=== PATIENT | male | born 1965 | race Caucasian/White ===

== ENCOUNTER 2023-03-18 17:19 | Emergency (ER) | payer OTHER, SELFPAY ==
[2023-03-18] VITALS (7 sets, daily range): BP systolic 137–180; BP diastolic 93–99; PULSE 60–91; RESP 16; TEMP 36.9; O2SAT 94–96; BMI 31.1
--- NOTE | 2023-03-18 17:34 | CTR_ITS ---
PROCEDURE INFORMATION: Exam: CT Head Without Contrast Exam date and time: 03/18/2023 6:12 PM Age: 57 years old Clinical indication: Injury or trauma; Fall; Blunt trauma (contusions or hematomas); Additional info: Fall headache TECHNIQUE: Imaging protocol: Computed tomography of the head without contrast. Radiation optimization: All CT scans at this facility use at least one of these dose optimization techniques: automated exposure control; mA and/or kV adjustment per patient size (includes targeted exams where dose is matched to clinical indication); or iterative reconstruction. REPORTING DATA: Count of CT and Cardiac NM exams in prior 12 months: This patient has received 0 known CTs and 0 known cardiac nuclear medicine studies in the 12 months prior to the current study. COMPARISON: No relevant prior studies available. RADIATION DOSE METRICS: Total DLP (mGy-cm): 1252 FINDINGS: Brain: Normal. No hemorrhage. Unremarkable white matter. No mass effect. Cerebral ventricles: No ventriculomegaly. Paranasal sinuses: Visualized sinuses are unremarkable. No fluid levels. Mastoid air cells: Visualized mastoid air cells are well aerated. Bones/joints: Unremarkable. No acute fracture. Soft tissues: Unremarkable. CT/CT head wo con* [id number] IMPRESSION: No acute intracranial abnormality.
--- NOTE | 2023-03-18 17:34 | CTR_ITS ---
PROCEDURE INFORMATION: Exam: CT Cervical Spine Without Contrast Exam date and time: 03/18/2023 6:12 PM Age: 57 years old Clinical indication: Injury or trauma; Fall; Blunt trauma; Additional info: Fall neck pain TECHNIQUE: Imaging protocol: Computed tomography of the cervical spine without contrast. Radiation optimization: All CT scans at this facility use at least one of these dose optimization techniques: automated exposure control; mA and/or kV adjustment per patient size (includes targeted exams where dose is matched to clinical indication); or iterative reconstruction. REPORTING DATA: Count of CT and Cardiac NM exams in prior 12 months: This patient has received 0 known CTs and 0 known cardiac nuclear medicine studies in the 12 months prior to the current study. COMPARISON: No relevant prior studies available. RADIATION DOSE METRICS: Total DLP (mGy-cm): 257 FINDINGS: Bones/joints: The vertebral body alignment and stature is intact. Mild degenerative endplate changes at C4-C5 through C6-C7. No significant central canal or foraminal stenosis. The facets are intact with mild degenerative changes. Lungs: Lung apices are normal. Soft tissues: Unremarkable. CT/CT cervical spin wo con* [id number] IMPRESSION: No acute findings.
[2023-03-18 17:41] LABS: Basophils # 0.1 10^3/uL (0.0-0.1); Basophils % 0.5 %; Eosinophils # 0.2 10^3/uL (0.0-0.8); Eosinophils % 2.2 %; Hematocrit 47.2 % (42.0-52.0); Hemoglobin 16.5 g/dL (11.7-16.6); Lymphocytes # 1.7 10^3/uL (0.8-4.8); Lymphocytes % 18.1 %; Mean Corpuscular Hemoglobin 31.4 pg (28.0-34.0); Mean Corpuscular Volume 89.7 fl (80-94); Mean Platelet Volume 9.2 fL (7.4-10.4); Monocytes # 0.9 10^3/uL (0.2-0.9); Monocytes % 9.3 %; Neutrophils # 6.24 10^3/uL (1.8-7.7); Neutrophils % 68.6 %; Nucleated Red Blood Cells % 0 %; Platelet Count 201 10^3/cmm (130-400); Red Blood Count 5.26 10^6/uL (4.1-5.3); Red Cell Distribution Width 13.8 % (12.1-15.1); White Blood Count 9.1 10^3/uL (4.0-10.0)
--- NOTE | 2023-03-18 17:43 | ECG_ITS ---
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 Measurements Intervals [place] Rate: 63 P: 44 AR: 180 QRS: -12 QRSD: 98 T: 38 QT: 394 QTc: 405 Interpretive Statements SINUS RHYTHM LOW QRS VOLTAGE IN PRECORDIAL LEADS [QRS DEFLECTION < 1.0 mV IN CHEST LEADS] MODERATE VOLTAGE CRITERIA FOR LVH, CONSIDER NORMAL VARIANT [MEETS CRITERIA IN ONE OF: R(aVL), S(V1), R(V5), R(V5/V6)+S(V1)] No previous ECG available for comparison Electronically Signed On 03-18-2023 19:24:36 CDT by Sada Moore M.D. [id number]
[2023-03-18 17:59] LABS: Alanine Aminotransferase 20 U/L (0-41); Alkaline Phosphatase 79 U/L (40-130); Anion Gap 13.4 (5-19); Aspartate Amino Transferase 14 U/L (0-40); Blood Urea Nitrogen 15 mg/dL (6-20); Calcium 8.6 mg/dL (8.5-10.5); Carbon Dioxide 25 mmol/L (22-29); Chloride 104 mmol/L (98-107); Creatinine Clr Calc Pharmacy 104.2317; Glomerular Filtration Rate 77.6 mL/min (90-130); Glucose 139 mg/dL (65-115); Magnesium 2.1 mg/dL (1.7-2.3); Osmolality Calculated 291 mOsm/kg (285-295); Potassium 3.4 mmol/L (3.5-5.1); Sodium 139 mmol/L (136-145); Total Bilirubin 0.6 mg/dL (0.15-1.2)
--- NOTE | 2023-03-18 18:06 | W.ED.SYNCOPE ---
HPI - Syncope General: Chief Complaint: Syncope Stated Complaint: syncope Time Seen by Provider: 03/18/23 17:30 History of Present Illness: Patient has syncopal episode today at work. Patient's son was positive he hit his head left side of his head. Patient denies any other symptoms at this time. Patient's blood pressure is high at 180/95. Patient is unsure how long he was out. Patient did not have any deciding factors prior to the syncopal episode. It was witnessed. Patient was placed in a c-collar by EMS secondary to neck pain. Review of Systems General: Reports: 10 or more systems reviewed and unremarkable except in HPI and below Physical Exam Const: COMMON NORMALS: no acute distress, average body habitus, patient oriented x3, no limitations, healthy appearing, alert and well nourished HENMT: COMMON NORMALS: normocephalic, atraumatic, hearing grossly normal bilaterally, external ears normal, Normal external nose present and moist oral mucous membranes HEAD & SCALP: normocephalic and atraumatic NOSE: Normal external nose present EXTERNAL EAR: Yes external ears normal Eye: COMMON NORMALS: Equal, round and reactive pupils present, EOMs intact bilaterally, conjunctivae normal and no scleral icterus CONJUNCTIVA: Yes conjunctivae normal PUPIL: Yes Equal, round and reactive pupils present Neck/C-Spine: COMMON NORMALS: no JVD OTHER: C-collar on patient upon arrival. Chest: COMMONS NORMALS: normal inspection of the chest and normal palpation of entire chest wall Resp: COMMON NORMALS: normal respiratory effort, No retractions, No use of accessory muscles and clear to auscultation bilaterally AUSCULTATION: clear to auscultation bilaterally Cardio: COMMON NORMALS: no JVD, regular rate, regular rhythm, S1 normal heart sound present, S2 normal heart sound present, No gallops present (Cardio), No clicks present (Cardio), No murmurs present (Cardio) and No rub (Cardio) RATE: regular rate RHYTHM: regular rhythm HEART SOUNDS: S1 normal heart sound present and S2 normal heart sound present GI: COMMON NORMALS: Normal to inspection, nondistended, normoactive bowel sounds present, Soft to palpation, non-tender, No hepatosplenomegaly present and no masses PALPATION: Yes Soft to palpation and Yes No hepatosplenomegaly present : COMMON NORMALS: Yes no CVA tenderness BLADDER/KIDNEY EXAM: Yes no CVA tenderness Back/Pelvis: COMMON NORMALS: no CVA tenderness Neuro: COMMON NORMALS: patient oriented x3 SENSORIUM/ORIENTATION: Yes alert Course Vital Signs: Vital signs: Vital Signs Temperature 98.4 F 03/18/23 17:21 Pulse Rate 91 03/18/23 18:27 Respiratory Rate 16 03/18/23 17:21 Blood Pressure 153/99 03/18/23 18:27 Pulse Oximetry 94 03/18/23 18:27 Oxygen Delivery Me thod Room Air 03/18/23 18:27 MDM - Syncope Medical Decision Making Patient comes to the ER with complaints of syncope at work and possible hitting his head. Patient also has neck pain. Lab work and EKG was obtained and CT scan of head and neck was obtained all of which was benign. Patient will be discharged home to follow-up with PCP in approximately 1 week. Differential Diagnosis Unlikely syncope due to orthostatic hypotension, vasovagal syncope, complete atrioventricular block, subarachnoid hemorrhage, pulmonary embolism or dehydration Medical Records I reviewed the patient's medical records. Lab Data I reviewed the patient's lab results. 03/18/23 17:32 03/18/23 17:32 Radiology Impressions Cervical Spine CT 03/18/23 17:34 IMPRESSION: No acute findings. Head CT 03/18/23 17:34 IMPRESSION: No acute intracranial abnormality. Laboratory Results WBC 9.1 10^3/uL (4.0-10.0) 03/18/23 17:32 RBC 5.26 10^6/uL (4.1-5.3) 03/18/23 17:32 Hgb 16.5 g/dL (11.7-16.6) 03/18/23 17:32 Hct 47.2 % (42.0-52.0) 03/18/23 17:32 MCV 89.7 fl (80-94) 03/18/23 17:32 MCH 31.4 pg (28.0-34.0) 03/18/23 17:32 MCHC 35.0 g/dL (30.0-36.0) 03/18/23 17:32 RDW 13.8 % (12.1-15.1) 03/18/23 17:32 Plt Count 201 10^3/cmm (130-400) 03/18/23 17:32 MPV 9.2 fL (7.4-10.4) 03/18/23 17:32 Neut % (Auto) 68.6 % 03/18/23 17:32 Lymph % (Auto) 18.1 % 03/18/23 17:32 [place] % (Auto) 9.3 % 03/18/23 17:32 Eos % (Auto) 2.2 % 03/18/23 17:32 Baso % (Auto) 0.5 % 03/18/23 17:32 Neut # (Auto) 6.24 10^3/uL (1.8-7.7) 03/18/23 17:32 Lymph # (Auto) 1.7 10^3/uL (0.8-4.8) 03/18/23 17:32 [place] # (Auto) 0.9 10^3/uL (0.2-0.9) 03/18/23 17:32 Eos # (Auto) 0.2 10^3/uL (0.0-0.8) 03/18/23 17:32 Baso # (Auto) 0.1 10^3/uL (0.0-0.1) 03/18/23 17:32 Nucleated RBC % (auto) 0 % 03/18/23 17:32 Nucleated RBCs # 0.0 /100WBC 03/18/23 17:32 Sodium 139 mmol/L (136-145) 03/18/23 17:32 Potassium 3.4 mmol/L (3.5-5.1) L 03/18/23 17:32 Chloride 104 mmol/L (98-107) 03/18/23 17:32 Carbon Dioxide 25 mmol/L (22-29) 03/18/23 17:32 Anion Gap 13.4 (5-19) 03/18/23 17:32 BUN 15 mg/dL (6-20) 03/18/23 17:32 Creatinine 1.0 mg/dL (0.7-1.2) 03/18/23 17:32 GFR Calculation 77.6 mL/min (90-130) L 03/18/23 17:32 Glucose 139 mg/dL (65-115) H 03/18/23 17:32 Calculated Osmolality 291 mOsm/kg (285-295) 03/18/23 17:32 Calcium 8.6 mg/dL (8.5-10.5) 03/18/23 17:32 Magnesium 2.1 mg/dL (1.7-2.3) 03/18/23 17:32 Total Bilirubin 0.6 mg/dL (0.15-1.2) 03/18/23 17:32 AST 14 U/L (0-40) 03/18/23 17:32 ALT 20 U/L (0-41) 03/18/23 17:32 Alkaline Phosphatase 79 U/L (40-130) 03/18/23 17:32 Total Protein 7.0 g/dL (6.6-8.7) 03/18/23 17:32 Albumin 4.0 g/dL (3.5-5.2) 03/18/23 17:32 Globulin 3.0 g/dL (1.3-4.6) 03/18/23 17:32 EKG Data EKG 1: I personally reviewed and interpreted this EKG as follows: EKG interpretation date: 03/18/23 EKG interpretation time: 17:43 Prior EKG tracings: not available for review Interpretation: EKG showed ventricular rate 63 bpm, [place] interval 180, QRS duration 98, QTc of 4 1, normal sinus rhythm, moderate voltage criteria for LVH, no ST-T wave changes Discharge Plan Discharge Patient Disposition: Home Clinical Impression: Syncope and collapse Condition: Stable Discharge Orders: Discharge ED (Routine); Ordered 03/18/23 Ordered By: Dylon Moore Referrals: Krish Sloan [Primary Care Provider] - 1 week Patient Instructions: Syncope (ED) Activity Restrictions/Additional Instructions: Please follow-up with your PCP in approximately 1 week or sooner as needed. Please return to the ER if symptoms worsen or return. Coding Level of Care Code ED Bridge Repair Crew Person for Avani Banda
== END 2023-03-18 19:31 | disposition home or self-care (01) ==
PROVIDERS: Emergency Provider Emergency Medicine; PCP Family Medicine
DX: R55 Syncope and collapse (principal)
CPT/HCPCS: 70450; 72125; 80053; 83735; 85025; 93005; 99285